=== PATIENT | female | born 1960 | race Caucasian/White ===

== ENCOUNTER 2022-09-25 09:25 | Outpatient (OUT) | payer BC, SELFPAY ==
[2022-09-25 09:41] LABS: Basophils Percent Auto 0.8 % (0.2-2.0); Eosinophils Absolute Auto 0.2 10^3/uL (0.0-0.7); Eosinophils Percent Auto 4.9 % (0.9-7.0); Hematocrit 41.4 % (36.0-48.0); Hemoglobin 13.5 g/dL (12.0-16.0); Immature Granulocytes Abs Auto 0.01 10^3/uL (0.00-0.03); Immature Granulocytes Pct Auto 0.2 % (0.0-0.5); Lymphocytes Absolute Auto 1.3 10^3/uL (1.2-3.8); Lymphocytes Percent Auto 26.5 % (20.5-60.0); Mean Corpuscular HGB Conc 32.6 g/dL (29.9-35.2); Mean Corpuscular Hemoglobin 29.9 pg (26.7-34.0); Mean Corpuscular Volume 91.8 fL (81.0-99.0); Mean Platelet Volume 9.3 fL (9.5-13.5); Monocytes Absolute Auto 0.5 10^3/uL (0.3-0.8); Monocytes Percent Auto 9.9 % (1.7-12.0); Neutrophils Absolute Auto 2.9 10^3/uL (1.4-6.5); Neutrophils Percent Auto 57.7 % (43.0-75.0); Platelet Count 350 10^3/uL (150-450); Red Blood Count 4.51 10^6/uL (4.20-5.40); Red Cell Distribution Width 12.3 % (11.0-15.0); White Blood Count 4.9 10^3/uL (4.0-11.0)
[2022-09-25 10:48] LABS: Estimated Average Glucose 105 mg/dL; Glycohemoglobin A1C 5.3 % (4.5-6.2)
[2022-09-25 11:07] LABS: Alanine Aminotransferase 31 U/L (14-59); Albumin Globulin Ratio 1.3; Albumin Level 4.2 g/dL (3.4-5.0); Alkaline Phosphatase 87 U/L (46-116); Anion Gap 14.5; Aspartate Amino Transferase 23 U/L (15-37); Bilirubin Total 0.4 mg/dL (0.2-1.0); Calcium 9.1 mg/dL (8.5-10.1); Carbon Dioxide 26.4 mmol/L (21.0-32.0); Chloride 106 mmol/L (98-107); Chol HDL Ratio 2.7; Cholesterol 205 mg/dL (<=200); Estimated GFR (African America >60 (>=60); Estimated GFR (Non-African Ame >60 (>=60); Free T3 2.45 pg/mL (2.18-3.98); Globulin 3.3 g/dL; Glucose 86 mg/dL (74-106); HDL Cholesterol 75 mg/dL (40-60); Potassium 3.9 mmol/L (3.5-5.1); Sodium 143 mmol/L (136-145); Thyroid Stimulating Hormone 1.069 uIU/mL (0.358-3.740); Total Protein 7.5 g/dL (6.4-8.2); Triglycerides 68 mg/dL (<=150); VLDL CHOLESTEROL 13.6 mg/dL
== END 2022-09-25 09:26 | disposition home or self-care (01) ==
LOC: LAB 10-19 14:54
PROVIDERS: PCP Family Medicine; Visit Provider Family Medicine
DX: Z00.00 Encounter for general adult medical examination without abnormal findings (principal); E03.9 Hypothyroidism, unspecified; R53.83 Other fatigue; D64.9 Anemia, unspecified; R73.09 Other abnormal glucose
CPT/HCPCS: 36415; 80053; 80061; 83036; 84436; 84443; 84481; 85025

== ENCOUNTER 2023-03-01 12:08 | Outpatient (OUT) | payer BC, SELFPAY ==
--- NOTE | 2023-03-01 12:15 | XR_ITS ---
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 TECHNIQUE: 2 views Findings/impression: Satisfactory alignment. Maintained vertebral body heights and disc spaces. Mild facet arthropathy of L4-S1. No acute fracture. Scattered calcified atherosclerotic disease of aorta. Electronically authenticated by: SALINA FAUSTIN Date: 03/01/2023 13:31
--- NOTE | 2023-03-01 12:27 | XR_ITS ---
The [address] [address] Patient Name: KAI ALEXANDER MRN: [id number] date: 1960 Sex: F Assigned Patient Location: [facility] Current Patient Location: [facility] Accession/Order Number: [id number] Exam Date: 03/01/2023 12:20 Report Date: 03/01/2023 14:09 At the request of: GORGE VANG Procedure: XR shoulder RT min 2V PROCEDURE: XR shoulder RT min 2V COMPARISON: None. HISTORY: Shoulder Impingement M75.40 FINDINGS: BONES:No acute fracture or dislocation. Mild acromioclavicular joint osteoarthropathy with 2 mm of subacromial spurring. The acromioclavicular joint is intact SOFT TISSUES:Negative. No visible soft tissue swelling. EFFUSION:None visible. OTHER: Negative. XR/XR shoulder RT min 2V IMPRESSION: Mild acromioclavicular joint osteoarthritis Electronically authenticated by: BRYAN ANTONIO Date: 03/01/2023 14:09
== END 2023-03-01 12:09 | disposition home or self-care (01) ==
LOC: RAD 12:10
PROVIDERS: PCP Family Medicine; Visit Provider Family Medicine
DX: M53.86 Other specified dorsopathies, lumbar region (principal); M75.40 Impingement syndrome of unspecified shoulder; M19.011 Primary osteoarthritis, right shoulder
CPT/HCPCS: 72100; 73030

== ENCOUNTER 2023-03-22 12:18 | Day surgery (SDC) | payer BC, SELFPAY ==
--- NOTE | 2023-03-22 | MR_ITS ---
The [address] [address] Patient Name: KAI ALEXANDER MRN: [id number] date: 1960 Sex: F Assigned Patient Location: MRI Current Patient Location: MRI Accession/Order Number: [id number] Exam Date: 03/22/2023 13:48 Report Date: 03/22/2023 22:27 At the request of: GORGE VANG Procedure: MR shoulder RT w con EXAM: MR shoulder RT w con HISTORY: Right shoulder pain after fall in December 2022 COMPARISON: Shoulder x-rays 03/01/2023 TECHNIQUE: Multiplanar, multi sequential MRI sequences were performed following the intra-articular injection of a saline-gadolinium solution. FINDINGS: This study is degraded as the axial projections do not extend past the inferior aspect of the acromioclavicular joint, the sagittal sequences do not extend medial aspect of the glenoid rim, and the coronal sequences windowing extends from just anterior to the subscapularis tendon to just posterior of the teres minor tendon. The arthrographic needle was placed into the middle glenohumeral ligament resulting in contrast imbibition. Additionally, the needle placement results in elevation of the subscapularis muscle from the anterior aspect of the glenoid approximately 43 mm medial (axial 12). Severe degenerative changes of the acromioclavicular joint consistent with capsular hypertrophy, osteophytes and irregularity of the distal clavicle and adjacent acromion articular surfaces and subchondral bone. This complex mildly touches the cephalad fibers of the supraspinatus myotendinous junction (sagittal 20 and coronal 9). Reactive fluid within the subacromial-subdeltoid bursal space. Thickening and edema of the coracoacromial ligament (sagittal 15). Thickening and interstitial edema of the coracohumeral ligament. No gross irregularity of the coracoclavicular images. Evaluation for glenohumeral joint effusion is nondiagnostic due to the arthrogram. No visualized fracture, dislocation or subluxation. The visualized subcutaneous soft tissues exhibit no gross edema, hematoma, mass or cyst. Thickening and interstitial edema of the posterior supraspinatus tendon with partial-thickness bursal sided fraying (sagittal 9). On the T1 fat-saturated sequences there is contrast imbibition into the articular sided fibers of the supraspinatus tendon that is not present on the fluid sensitive sequencing (sagittal 8, axial 6 and coronal 9-10). Mild thickening and edema of the infraspinatus tendon with no tear. The subscapularis and teres minor tendons exhibit no thickening, tear or edema. Evaluation of the muscles is limited secondary to technique. No gross visualized irregularity. No avulsion of the biceps tendon long head from the supraglenoid tubercle or bicipital groove. The biceps tendon long head exhibits no discrete thickening, tear or edema. No gross irregularity the biceps labral anchor. No gross visualized irregularity the glenoid labrum. No gross chondral or osteochondral irregularity of the humeral head or glenoid articular cartilage. MR/MR shoulder RT w con IMPRESSION: 1. Supraspinatus tendinopathy with partial-thickness bursal sided fraying and noncommunicative articular sided footprint tear. 2. Infraspinatus tendinopathy. Electronically authenticated by: BRYAN JOHNSON Date: 03/22/2023 22:27
--- NOTE | 2023-03-22 12:41 | FL_ITS ---
[address] [address] Patient Name: KAI ALEXANDER MRN: [id number] date: 1960 Sex: F Assigned Patient Location: MRI Current Patient Location: MRI Accession/Order Number: [id number] Exam Date: 03/22/2023 12:45 Report Date: 03/22/2023 13:59 At the request of: GORGE VANG Procedure: FL guided needle placement EXAMINATION: FL arthrogram shoulder, FL guided needle placement HISTORY: shoulder impingement COMPARISON: No relevant comparison available. TECHNIQUE: An arthrogram was performed under fluoroscopic guidance using non-ionic contrast material in the usual sterile manner after obtaining informed consent. Standard level fluoroscopic mode of operation utilized. FINDINGS: JOINT: Right shoulder NEEDLE: 25 gauge, 3.5 spinal needle. MEDICATION: 2 mL buffered 1% lidocaine for subcutaneous anesthesia. Approximately 8 mL injected into joint space consisting of a mixture of 5 mL Omnipaque-300, 5 mL 1% Xylocaine and 0.2 mL Dotarem. TECHNIQUE: Anterior approach under fluoroscopic guidance. CLINICAL: No change in pain following the injection. COMPLICATIONS: None. OTHER: Negative. FL/FL guided needle placement IMPRESSION: 1. Technically successful arthrogram without complication. 2. Please see separate MRI arthrogram report. Electronically authenticated by: SEJAL SMITH Date: 03/22/2023 13:59
--- NOTE | 2023-03-22 13:42 | FL_ITS ---
[address] [address] Patient Name: KAI ALEXANDER MRN: [id number] date: 1960 Sex: F Assigned Patient Location: MRI Current Patient Location: MRI Accession/Order Number: [id number] Exam Date: 03/22/2023 12:45 Report Date: 03/22/2023 13:59 At the request of: GORGE VANG Procedure: FL arthrogram shoulder EXAMINATION: FL arthrogram shoulder, FL guided needle placement HISTORY: shoulder impingement COMPARISON: No relevant comparison available. TECHNIQUE: An arthrogram was performed under fluoroscopic guidance using non-ionic contrast material in the usual sterile manner after obtaining informed consent. Standard level fluoroscopic mode of operation utilized. FINDINGS: JOINT: Right shoulder NEEDLE: 25 gauge, 3.5 spinal needle. MEDICATION: 2 mL buffered 1% lidocaine for subcutaneous anesthesia. Approximately 8 mL injected into joint space consisting of a mixture of 5 mL Omnipaque-300, 5 mL 1% Xylocaine and 0.2 mL Dotarem. TECHNIQUE: Anterior approach under fluoroscopic guidance. CLINICAL: No change in pain following the injection. COMPLICATIONS: None. OTHER: Negative. FL/FL arthrogram shoulder IMPRESSION: 1. Technically successful arthrogram without complication. 2. Please see separate MRI arthrogram report. Electronically authenticated by: SEJAL SMITH Date: 03/22/2023 13:59
--- NOTE | 2023-03-22 14:24 | SUR.PREOP ---
03/02/23 Instructed pt on procedure, date, time. Pt to hold ASA x 5 days prior to procedure.
== END 2023-03-22 13:45 | disposition home or self-care (01) ==
PROVIDERS: Radiology Diagnostic Radiology; PCP Family Medicine; Visit Provider Family Medicine
DX: M75.41 Impingement syndrome of right shoulder (principal)
CPT/HCPCS: 23350; 73222; 77002; A9575; Q9967

== ENCOUNTER 2023-10-15 11:40 | Outpatient (OUT) | payer BC, SELFPAY ==
--- OUTSIDE RECORDS SUMMARY | 2023-10-15 11:45 | XMS_ITS | CCD ---
Author Organization [facility] Care Team Providers Care General Machine Operator Name Role Phone CIERA ., DR PENNINGTON Admitting Unavailable HOY ., DR PENNINGTON Attending Unavailable HOY ., DR PENNINGTON Primary Care Unavailable HOY ., DR PENNINGTON Consulting Unavailable Sejal Cox Consulting Unavailable HOY ., DR PENNINGTON Admitting Unavailable HOY ., DR PENNINGTON Attending Unavailable HOY ., DR PENNINGTON Primary Care Unavailable MILESY ., DR PENNINGTON Consulting Unavailable Sejal Cox Consulting Unavailable DANNY MOSER Attending Unavailable Problems Problem Classification Problem Date Documented Da te Episodic/Chronic Abdominal hernia (4 sources) Unilateral inguinal hernia, without obstruction or gangrene, not specified as recurrent; Translations: [UNI ING RUTH NO OBST/GANG NOT RECUR] Onset: 06-11-2022 Episodic Residual codes; unclassified (4 sources) Other amnesia; Translations: [OTHER AMNESIA] Onset: 04-08-2022 Episodic Results Test Name Value Interpretation Reference Range Facil ity CREATININEon 06-11-2022 Creatinine [Mass/Vol] 0.74 mg/dL Normal 0.55-1.02 [facility] Comment on above: Performed By: #### C JE #### [facility] [address] [address] [address] Hellen Lsasiter EGFR-AF MICRONESIAN >60 Normal >=60 [facility] Comment on above: Performed By: #### C JE #### [facility] [address] [address] [address] Hellen Lassiter EGFR-NON AF MICRONESIAN >60 Normal >=60 [facility] Comment on above: Performed By: #### C JE #### [facility] [address] ABD/PELV W CONon 06-11-19 CT ABD/PELV W CON EXAMINATION: CT ABD/PELV W CON HISTORY: Inguinal hernia ; recent sharp planes and sensation in left lower quadrant COMPARISON: No relevant comparison available. TECHNIQUE: Axial, Coronal, and Sagittal images were obtained without and/or with IV contrast as indicated by examination type. Dose reduction techniques were achieved by using automated exposure control and/or adjustment of mA and/or kV according to patient size and/or use of iterative reconstruction technique. FINDINGS: LUNG BASES: No visible pulmonary or pleural disease. LIVER: No enlargement, atrophy, suspicious density, or significant focal lesion. BILIARY: No dilatation or calcification. PANCREAS: No lesion, fluid collection, or abnormal duct dilatation. SPLEEN: Small cyst versus hemangioma, likely incidental. ADRENALS: No mass or enlargement. KIDNEYS: No mass, obstruction, or calcification. BOWEL/MESENTERY: No visible mass, obstruction, or bowel wall thickening. Normal appendix. No significant diverticular disease. AORTA/VASCULAR: No aneurysm or dissection. RETROPERITONEUM: No mass or adenopathy. LYMPH NODES: No adenopathy. URINARY BLADDER: No visible focal wall thickening, lesion, or calculus. PELVIC ORGANS: No visible mass. Pelvic organs appropriate for patient age. ABDOMINAL WALL: No mass or hernia. BONES: No bony lesion or fracture. OTHER: Negative. IMPRESSION: 1. No left inguinal hernia. 2.No diverticular disease of the sigmoid colon. 3. No suspicious findings to account for patient's prior symptoms. Electronically authenticated by: SEJAL COX Date: 2022-06-11 15:14 Normal [facility] CREATININEon 04-08-2022 Creatinine [Mass/Vol] 0.82 mg/dL Normal 0.55-1.02 [facility] Comment on above: Performed By: #### C JE #### [facility] [address] [address] [address] Hellen Lassiter EGFR-AF MICRONESIAN >60 Normal >=60 [facility] Comment on above: Performed By: #### C JE #### [facility] [address] [address] [address] Hellen Lassiter EGFR-NON AF MICRONESIAN >60 Normal >=60 [facility] Comment on above: Performed By: #### C JE #### [facility] [id number] Hellen Lassiter Encounters Encounter Date Encounter Type Care Provider Facility Start: 03-29-2023 End: 03-29-2023 ambulatory DANNY MOSER Not Available Start: 06-11-2022 End: 06-12-[address] GORGE VANG . Facility: Start: 04-08-2022 End: 04-09-[address] GORGE VANG . Facility:[facility] Payers Date Payer Category Payer Unknown [id number] 2.16.84 [id number] 1960 Unknown [id number] [id number] [id number] 1960 Unknown [id number] 1958 Unknown [id number] 1958 Unknown [id number] Clinical Note 04-09-2022 Note Date & Type Note Facility 04-09-2022 Note EXAMINATION: MRI BRA IN WO W CON HISTORY: Amnesia ; progression of memory issues COMPARISON: No relevant comparison available. TECHNIQUE: A variety of imaging planes and parameters were utilized for visualization of suspected pathology. Images were performed without and with Dotarem contrast. FINDINGS: CEREBRUM: No edema, hemorrhage, mass, acute infarction, or inappropriate atrophy. CEREBELLUM: No edema, hemorrhage, mass, acute infarction, or inappropriate atrophy. BRAINSTEM: No edema, hemorrhage, mass, acute infarction, or inappropriate atrophy. CSF SPACES: Ventricles, cisterns, and sulci are appropriate for age. No hydrocephalus, subarachnoid hemorrhage, or mass. SKULL: No mass or other significant visible lesion. SINUSES: Limited views demonstrate no significant mucosal thickening or fluid. ORBITS: Limited views are unremarkable. OTHER: No abnormal meningeal or parenchymal enhancement. IMPRESSION: 1. Normal examination. Electronically authenticated by: SEJAL COX Date: 2022-04-09 08:20 [facility] Summary Purpose Family History No Family History Records FoundNo Family History Records Found Advance Directives No Advanced Directives Records FoundNo Advanced Directives Records Found Additional Source Comments INFORMATION SOURCE (unrecogn ized section and content) DATE CREATED AUTHOR 06/17/2022 [facility] DATE CREATED AUTHOR AUTHOR'S KENNY ATNILTON 03/31/2023 [facility] dical Specialists [facility] FOR RECORDS PERTAINING TO PATIENTS WHO ARE OR HAVE BEEN ENROLLED IN A CHEMICAL DEPENDENCY/SUBSTANCEABUSE PROGRAM, SOME INFORMATION MAY BE OMITTED. This clinical summary was aggregated from multiple sources. Caution should be exercised in using it in the provision of clinical care. This summary normalizes information from multiple sources, and as a consequence, information in this document may materially change the coding, format and clinical context of patient data. In addition, data may be omitted in some cases. CLINICAL DECISIONS SHOULD BE BASED ON THE PRIMARY CLINICAL RECORDS. [facility] [employer] provides no warranty or guarantee of the accuracy or completeness of information in this document.
[2023-10-15 12:13] LABS: Estimated Average Glucose 103 mg/dL; Glycohemoglobin A1C 5.2 % (4.5-6.2)
[2023-10-15 12:31] LABS: Basophils Percent Auto 0.9 % (0.2-2.0); Eosinophils Absolute Auto 0.2 10^3/uL (0.0-0.7); Eosinophils Percent Auto 3.3 % (0.9-7.0); Hematocrit 35.8 % (36.0-48.0); Hemoglobin 11.6 g/dL (12.0-16.0); Lymphocytes Absolute Auto 1.2 10^3/uL (1.2-3.8); Lymphocytes Percent Auto 26.1 % (20.5-60.0); Mean Corpuscular HGB Conc 32.4 g/dL (29.9-35.2); Mean Corpuscular Volume 92.5 fL (81.0-99.0); Mean Platelet Volume 10.3 fL (9.5-13.5); Monocytes Absolute Auto 0.4 10^3/uL (0.3-0.8); Monocytes Percent Auto 9.6 % (1.7-12.0); Neutrophils Absolute Auto 2.8 10^3/uL (1.4-6.5); Neutrophils Percent Auto 60.1 % (43.0-75.0); Platelet Count 329 10^3/uL (150-450); Red Blood Count 3.87 10^6/uL (4.20-5.40); Red Cell Distribution Width 11.9 % (11.0-15.0); White Blood Count 4.6 10^3/uL (4.0-11.0)
[2023-10-15 13:43] LABS: Alanine Aminotransferase 27 U/L (14-59); Albumin Globulin Ratio 1.4; Alkaline Phosphatase 68 U/L (46-116); Anion Gap 12.1; Aspartate Amino Transferase 17 U/L (15-37); BUN Creatinine Ratio 19.7; Bilirubin Total 0.6 mg/dL (0.2-1.0); Calcium 8.7 mg/dL (8.5-10.1); Carbon Dioxide 26.8 mmol/L (21.0-32.0); Chloride 106 mmol/L (98-107); Chol HDL Ratio 2.5; Cholesterol 170 mg/dL (<=200); Estimated GFR (African America >60 (>=60); Estimated GFR (Non-African Ame >60 (>=60); Free T3 1.56 pg/mL (2.18-3.98); Globulin 2.9 g/dL; Glucose 85 mg/dL (74-106); HDL Cholesterol 68 mg/dL (40-60); Potassium 3.9 mmol/L (3.5-5.1); Sodium 141 mmol/L (136-145); Total Protein 6.9 g/dL (6.4-8.2); Triglycerides 35 mg/dL (<=150)
[2023-10-17 15:36] LABS: Internal Control Within Normal Limits; Occult Blood Negative
== END 2023-10-15 11:41 | disposition home or self-care (01) ==
LOC: LAB 11:43
PROVIDERS: PCP Family Medicine; Visit Provider Family Medicine
DX: Z00.00 Encounter for general adult medical examination without abnormal findings (principal)
CPT/HCPCS: 36415; 80053; 80061; 83036; 83540; 84436; 84443; 84481; 85025; G0328

== ENCOUNTER 2023-12-02 09:23 | Outpatient (OUT) | payer BC, SELFPAY ==
--- OUTSIDE RECORDS SUMMARY | 2023-12-02 09:34 | XMS_ITS | CCD ---
Author Organization [facility] Care Team Providers Care Tire Fixer Name Role Phone CIERA ., DR PENNINGTON [...] Creatinine [Mass/Vol] 0.74 mg/dL Normal 0.55-1.02 [facility] Comment on above: Performed By: #### C JE #### [facility] [address] [address] [address] Hellen Lassiter EGFR-AF LITHUANIAN >60 Normal >=60 [facility] Comment on above: Performed By: #### C JE #### [facility] [address] [address] [address] Hellen Lassiter EGFR-NON AF LITHUANIAN >60 Normal >=60 [facility] Comment on above: Performed By: #### C JE #### [facility] [address] ABD/PELV W CONon [...] SEJAL COX Date: 2022-06-11 15:14 Normal [facility] CREATININEon 04-08-2022 Creatinine [Mass/Vol] 0.82 mg/dL Normal 0.55-1.02 [facility] Comment on above: Performed By: #### C JE #### [facility] [address] [address] [address] Hellen Lassiter EGFR-AF LITHUANIAN >60 Normal >=60 [facility] Comment on above: Performed By: #### C JE #### [facility] [address] [address] [address] Hellen Lassiter EGFR-NON AF LITHUANIAN >60 Normal >=60 [facility] Comment on above: Performed By: #### C JE #### [facility] [id number] Hellen Lassiter Encounters Encounter Date Encounter Type Care Provider Facility Start: 03-29-2023 End: 03-29-2023 ambulatory DANNY MOSER Not Available Start: 06-11-2022 End: 06-12-[address] GORGE VANG . Facility: Start: 04-08-2022 End: 04-09-[address] GORGE VANG . Facility:[facility] Payers Date Payer Category Payer Unknown [id number] 2.16.84 [id number] 1960 Unknown [id number] 2.16.84 [id number] 1960 Unknown [id number] 1958 Unknown [id number] 1958 Unknown [id number] Clinical Note 04-09-2022 Note Date & Type [...] by: SEJAL COX Date: 2022-04-09 08:20 [facility] Summary Purpose Family History No Family History Records FoundNo Family History Records Found Advance Directives No Advanced Directives Records FoundNo Advanced Directives Records Found Additional Source Comments INFORMATION SOURCE (unrecogn ized section and content) DATE CREATED AUTHOR 06/17/2022 [facility] DATE CREATED AUTHOR AUTHOR'S KENNY ATNILTON 03/31/[address] [facility] dical Specialists [facility] FOR RECORDS PERTAINING TO PATIENTS WHO ARE [...] BE BASED ON THE PRIMARY CLINICAL RECORDS. [facility] [employer] provides no warranty or guarantee of the accuracy or completeness of information in this document.
[2023-12-02 09:42] LABS: Basophils Absolute Auto 0.1 10^3/uL (0.0-0.1); Basophils Percent Auto 1.3 % (0.2-2.0); Eosinophils Absolute Auto 0.1 10^3/uL (0.0-0.7); Eosinophils Percent Auto 3.6 % (0.9-7.0); Hematocrit 39.5 % (36.0-48.0); Hemoglobin 12.6 g/dL (12.0-16.0); Immature Granulocytes Abs Auto 0.01 10^3/uL (0.00-0.03); Immature Granulocytes Pct Auto 0.3 % (0.0-0.5); Lymphocytes Absolute Auto 1.1 10^3/uL (1.2-3.8); Mean Corpuscular HGB Conc 31.9 g/dL (29.9-35.2); Mean Corpuscular Hemoglobin 30.5 pg (26.7-34.0); Mean Corpuscular Volume 95.6 fL (81.0-99.0); Mean Platelet Volume 10.3 fL (9.5-13.5); Monocytes Absolute Auto 0.4 10^3/uL (0.3-0.8); Monocytes Percent Auto 10.4 % (1.7-12.0); Neutrophils Absolute Auto 2.1 10^3/uL (1.4-6.5); Neutrophils Percent Auto 55.4 % (43.0-75.0); Platelet Count 326 10^3/uL (150-450); Red Blood Count 4.13 10^6/uL (4.20-5.40); Red Cell Distribution Width 12.4 % (11.0-15.0); White Blood Count 3.9 10^3/uL (4.0-11.0)
[2023-12-02 11:58] LABS: Thyroid Stimulating Hormone 0.636 uIU/mL (0.358-3.740)
[2023-12-02 13:05] LABS: Free T4 1.09 ng/dL (0.76-1.46)
== END 2023-12-02 09:24 | disposition home or self-care (01) ==
LOC: LAB 09:25
PROVIDERS: PCP Family Medicine; Visit Provider Family Medicine
DX: E03.9 Hypothyroidism, unspecified (principal); D64.9 Anemia, unspecified
CPT/HCPCS: 36415; 82728; 83540; 84439; 84443; 84481; 85025

== ENCOUNTER 2023-12-07 08:01 | Outpatient (OUT) | payer BC, SELFPAY ==
--- NOTE | 2023-12-07 08:08 | US_ITS ---
The [address] [address] Patient Name: KAI ALEXANDER MRN: [id number] date: 1960 Sex: F Assigned Patient Location: Current Patient Location: LAB Accession/Order Number: [id number] Exam Date: 12/07/2023 08:09 Report Date: 12/07/2023 20:48 At the request of: GORGE VANG Procedure: US abdomen complete EXAM: US abdomen complete, 12/07/2023. COMPARISON STUDY: CT of the abdomen and pelvis with contrast 06/11/2022. TECHNIQUE: Multiple sagittal and transverse images of the abdomen were obtained. Acr-scale, color and spectral wave Doppler analysis was utilized. HISTORY: Abnormal Laboratory Test R89.9. FINDINGS: The visualized portions of the pancreas appear unremarkable. Interrogated portions of the splenic vein distally and portal splenic confluence are patent with color Doppler. Proximal, mid and distal segments of the aorta measure 2.3, 2.0 x 1.6 cm anterior to posterior respectively without aneurysm. Visualized portions of the IVC and liver appear unremarkable. Incidental note of small focus of fatty infiltration near the fissure of the falciform ligament. Main portal vein is patent with flow in the correct direction. No significant biliary ductal dilatation. Common bile duct has a diameter 3 mm. There is a small polyp emanating off the anterior portion of the gallbladder wall within the midportion of the gallbladder lumen. This measures 7 x 4 x 5 mm. A calculus at the inferior pole of the right kidney may be present, 2 mm. Cortical thickness and parenchymal architecture of the kidneys are within normal limits. A subcapsular cyst at the upper pole of the spleen measures 1.4 x 1.3 x 1.3 cm. The spleen measures 7.7 x 3.1 x 8.4 cm. The right kidney measures 10.6 x 4.8 x 4.8 cm. The left kidney measures 9.2 x 6.2 x 5.5 cm. US/US abdomen complete IMPRESSION: 1. There is a subcentimeter gallbladder polyp as described. Negative for acute cholecystitis or biliary ductal dilatation. 2. Focal fatty infiltration of the liver near the fissure of the falciform ligament. 3. Subcentimeter nonobstructive calculus inferior pole right kidney. There is no hydronephrosis. 4. Subcapsular superior pole splenic cyst again identified unchanged. Electronically authenticated by: TREV MAGAÑA Date: 12/07/2023 20:48
--- OUTSIDE RECORDS SUMMARY | 2023-12-07 08:12 | XMS_ITS | CCD ---
Author Organization [facility] Care Team Providers Care Set Up Machinist Name Role Phone CIERA ., DR PENNINGTON [...] Creatinine [Mass/Vol] 0.74 mg/dL Normal 0.55-1.02 [facility] Comment on above: Performed By: #### C JE #### [facility] [address] [address] [address] Hellen Lassiter EGFR-AF INDONESIAN >60 Normal >=60 [facility] Comment on above: Performed By: #### C JE #### [facility] [address] [address] [address] Hellen Lassiter EGFR-NON AF INDONESIAN >60 Normal >=60 [facility] Comment on above: Performed By: #### C JE #### [facility] [address] [address] [address] ABD/PELV W CONon [...] SEJAL COX Date: 2022-06-11 15:14 Normal [facility] CREATININEon 04-08-2022 Creatinine [Mass/Vol] 0.82 mg/dL Normal 0.55-1.02 [facility] Comment on above: Performed By: #### C JE #### [facility] [address] [address] [address] Hellen Lassiter EGFR-AF INDONESIAN >60 Normal >=60 [facility] Comment on above: Performed By: #### C JE #### [facility] [address] [address] [address] Hellen Lassiter EGFR-NON AF INDONESIAN >60 Normal >=60 [facility] Comment on above: Performed By: #### C JE #### [facility] [id number] Hellen Lassiter Encounters Encounter Date Encounter Type Care Provider Facility Start: 03-29-2023 End: 03-29-2023 ambulatory DANNY MOSER Not Available Start: 06-11-2022 End: 06-12-[address] GORGE VANG . Facility: Start: 04-08-2022 End: 04-09-[address] GORGE VANG . Facility:[facility] Payers Date Payer Category Payer Unknown [id number] [id number] [id number] 1960 Unknown [id number] 2.16.84 [id number] 1960 Unknown [id number] 1958 Unknown [id number] 1958 Unknown [id number] Clinical Note 04-09-2022 Note Date & Type [...] by: SEJAL COX Date: 2022-04-09 08:20 [facility] Summary Purpose Family History No Family History Records FoundNo Family History Records Found Advance Directives No Advanced Directives Records FoundNo Advanced Directives Records Found Additional Source Comments INFORMATION SOURCE (unrecogn ized section and content) DATE CREATED AUTHOR 06/17/2022 [facility] DATE CREATED AUTHOR AUTHOR'S KENNY ATNILTON 03/31/2023 [facility] dical Specialists [facility] FOR RECORDS PERTAINING TO PATIENTS WHO ARE [...] BE BASED ON THE PRIMARY CLINICAL RECORDS. [facility] [employer] provides no warranty or guarantee of the accuracy or completeness of information in this document.
== END 2023-12-07 08:02 | disposition home or self-care (01) ==
LOC: US 08:01
PROVIDERS: PCP Family Medicine; Visit Provider Family Medicine
DX: R89.9 Unspecified abnormal finding in specimens from other organs, systems and tissues (principal); N20.0 Calculus of kidney
CPT/HCPCS: 76700

== ENCOUNTER 2024-03-02 08:19 | Outpatient (OUT) | payer BC, SELFPAY ==
--- OUTSIDE RECORDS SUMMARY | 2024-03-02 08:30 | XMS_ITS | CCD ---
Author Organization [facility] Care Team Providers Care Mercantile Reporter Name Role Phone CIERA ., DR PENNINGTON [...] Creatinine [Mass/Vol] 0.74 mg/dL Normal 0.55-1.02 [facility] Comment on above: Performed By: #### C JE #### [facility] Laboratory [address] [address] [address] Hellen Lassiter EGFR-AF CAMEROONIAN >60 Normal >=60 [facility] Comment on above: Performed By: #### C JE #### [facility] [address] [address] [address] Hellen Lassiter EGFR-NON AF CAMEROONIAN >60 Normal >=60 [facility] Comment on above: Performed By: #### C JE #### [facility] [address] ABD/PELV W CONon [...] SEJAL COX Date: 2022-06-11 15:14 Normal [facility] CREATININEon 04-08-2022 Creatinine [Mass/Vol] 0.82 mg/dL Normal 0.55-1.02 [facility] Comment on above: Performed By: #### C EJ #### [facility] [address] [address] [address] Hellen Lassiter EGFR-AF CAMEROONIAN >60 Normal >=60 [facility] Comment on above: Performed By: #### C JE #### [facility] [address] [address] [address] Hellen Lassiter EGFR-NON AF CAMEROONIAN >60 Normal >=60 [facility] Comment on above: Performed By: #### C JE #### [facility] [id number] Hellen Lassiter Encounters Encounter Date Encounter Type Care Provider Facility Start: 03-29-2023 End: 03-29-2023 ambulatory DANNY MOSER Not Available Start: 06-11-2022 End: 06-12-[address] GORGE VANG . Facility: Start: 04-08-2022 End: 04-09-[address] GORGE VANG . Facility:[facility] Payers Date Payer Category Payer Unknown [id number] [id number] [id number] 1961 Unknown [id number] [id number] [id number] 1961 Unknown [id number] 1959 Unknown [id number] 1959 Unknown [id number] Clinical Note 04-09-2022 Note Date & Type [...] by: SEJAL COX Date: 2022-04-09 08:20 [facility] Summary Purpose Family History No Family History Records FoundNo Family History Records Found Advance Directives No Advanced Directives Records FoundNo Advanced Directives Records Found Additional Source Comments INFORMATION SOURCE (unrecogn ized section and content) DATE CREATED AUTHOR 06/17/2022 [facility] DATE CREATED AUTHOR AUTHOR'S KENNY ATNILTON 03/31/2023 [facility] dical Specialists [facility] FOR RECORDS PERTAINING TO PATIENTS WHO [...] BE BASED ON THE PRIMARY CLINICAL RECORDS. [facility] [employer] provides no warranty or guarantee of the accuracy or completeness of information in this document.
[2024-03-02 09:58] LABS: Free T4 0.86 ng/dL (0.76-1.46)
[2024-03-02 10:04] LABS: Free T3 1.76 pg/mL (2.18-3.98); Thyroid Stimulating Hormone 0.195 uIU/mL (0.358-3.740)
== END 2024-03-02 08:20 | disposition home or self-care (01) ==
LOC: LAB 08:20
PROVIDERS: PCP Family Medicine; Visit Provider Family Medicine
DX: E03.9 Hypothyroidism, unspecified (principal)
CPT/HCPCS: 36415; 84439; 84443; 84481

== ENCOUNTER 2025-03-19 10:15 | Outpatient (OUT) | payer BC, SELFPAY ==
--- OUTSIDE RECORDS SUMMARY | 2025-03-19 10:21 | XMS_ITS | CCD ---
Author Organization [facility] Care Team Providers Care Boat Builder Name Role Phone CIERA ., DR PENNINGTON Admitting Unavailable CIERA ., DR PENNINGTON Attending Unavailable CIERA ., DR PENNINGTON Primary Care Unavailable CIERA ., DR PENNINGTON Consulting Unavailable Wilmar Cox Consulting Unavailable CIERA ., DR PENNINGTON Admitting Unavailable MILESY ., DR PENNINGTON Attending Unavailable HOY ., DR PENNINGTON Primary Care Unavailable MILESY ., DR PENNINGTON Consulting Unavailable Wilmar Cox Consulting Unavailable Unavailable Primary Care Provider UnavailCHEPE Banuelos Attending Unavailable CODIE MOSER Attending Unavailable Medications Current Medications MedicationDrug Class(es)DatesSig (Normalized)Sig (Original)ascorbic acid 1000 mg oral tablet (2 sources)Vitamin Ctake 1 tablet by mouth once dailyAscorbic Acid (vitamin C) 1000 MG tablet Take 1,000 mg by mouth Daily Activeaspirin 81 mg delayed release oral tablet (5 sources)Platelet Aggregation Inhibitor, Nonsteroidal Anti-inflammatory Drug take 1 tablet by mouth in the morningaspirin 81 MG EC tablet Take 81 mg by mouth in the morning. Activecephalexin 500 mg oral capsule (2 sources)Cephalosporin AntibacterialStart: 49-64-9380weze 1 capsule by mouth twice dailycephalexin (Keflex) 500 MG capsule Indications: Cellulitis of great toe of left foot 1 po bid untilall taken. 14 capsule 10/20/2024 Active chondroitin sulfates 400 mg / glucosamine sulfate 500 mg oral tablet (5 sources)take 1 tablet by mouth in the morning, then take 1 tablet by mouth in the evening, then take 1 tablet by mouth at bedtimeglucosamine-chondroitin 500- 400 MG tablet Take 1 tablet by mouth in the morning and 1 tablet in theevening and 1 tablet before bedtime. Activelevothyroxine sodium 0.025 mg oral tablet (5 sources)l-Thyroxinelevothyroxine (Synthroid, Levoxyl) 25 MCG tablet Take by mouth Daily before meals Activeliothyronine sodium 0.005 mg oral tablet (5 sources)l-Triiodothyroninetake 1 tablet by mouth once dailyliothyronine (Cytomel) 5 MCG tablet Take by mouth Daily ActiveMULTIPLE VITAMIN PO (5 sources)MULTIPLE VITAMIN PO Take by mouth Activenaproxen 250 mg oral tablet (2 sources)Nonsteroidal Anti-inflammatory Drugnaproxen (Naprosyn) 250 MG tablet Take by mouth Activeoxaprozin 600 mg oral tablet (5 sources)Nonsteroidal Anti-inflammatory Drugtake 2 tablets by mouth in the morningoxaprozin (Daypro) 600 MG tablet Take 1,200 mg by mouth in the morning. Zyusbd52 hr oxybutynin chloride 10 mg extended release oral tablet (5 sources)Cholinergic Muscarinic Antagonisttake 1 tablet by mouth every twenty- four hours in the morningoxybutynin XL (Ditropan-XL) 10 MG 24 hr tablet Take 10 mg by mouth in the morning. Do not crush, chew, or split. . Active Problems Problem ClassificationProblemDateDocumented DateEpisodic/ChronicAbdominal hernia (4 sources)Unilateral inguinal hernia, without obstruction or gangrene, not specified as recurrent; Translations: [UNI ING RUTH NO OBST/GANG NOT RECUR] Onset: 49-56-1236PmneycgpJpqyx skin disorders (2 sources)Seborrheic keratosis; Translations: [Other seborrheic keratosis] 28-11-9650JkusliwbSdaap skin disorders (2 sources)Inflamed seborrheic keratosis; Translations: [Inflamed seborrheic keratosis]42-61-8214QswolfcsUhtmc skin disorders (2 sources)Actinic keratosis; Translations: [Actinic keratosis]03-27-2024 EpisodicOther skin disorders (2 sources)Lentiginosis; Translations: [Other melanin hyperpigmentation] 85-17-5117MmdgcgvcVtxotrzu codes; unclassified (4 sources)Other amnesia; Translations: [OTHER AMNESIA]Onset: 67-78-0086[place] Skin and subcutaneous tissue infections (2 sources)Cellulitis of left toe; Translations: [Cellulitis and abscess of toe, unspecified]58-55-2810Biwbpghb Results Test NameValueInterpretationReference RangeFacilityNo Panel Informationon 92-96-4107EEOT HealthcareNOMO HealthcareCREATININEon 00-48-9475Aidmdkdxma [Mass/Vol]0.74 mg/dLNormal0.55-1.02[facility] HospitalComment on above: Performed By: #### CREA #### [facility] [address] [place] [address] Dr. Hellen SchaferGFR-AF IVORIAN>60Normal>=60[facility] HospitalComment on above:Performed By: #### CREA #### [facility] [address] [place] [address] Dr. Hellen SchaferGFR-NON AF IVORIAN>60Normal>=60[facility] HospitalComment on above:Performed By: #### CREA #### [facility] [address] [place] [address] Dr. Macedo ChangCT ABD/PELV W CONon 37-62-6486OK ABD/PELV W CONEXAMINATION: CT ABD/PELV W CON HISTORY: Inguinal hernia [...] for patient's prior symptoms. Electronically authenticated by: WILMAR COX Date: 2022-06-11 15:14[facility] 33-47-6506Mhfxjixhdc [Mass/Vol]0.82 mg/dLNormal 0.55-1.02[facility] HospitalComment on above:Performed By: #### CREA #### [facility] [address] [place] [address] Dr. Hellen SchaferGFR-AF IVORIAN>60Normal>=60[facility] HospitalComment on above:Performed By: #### CREA #### [facility] [address] [place] [address] Dr. Hellen SchaferGFR-NON AF IVORIAN>60Normal>=60[facility] Hospitalment on above:Performed By: #### CREA #### [facility] [address] [place] [address] Dr. Hellen Lassiter Vital Signs Date TimeVital SignValuePerforming FwimbmnfmPtueulhb09-23-2477 12:13-0400Body uednuyfmvtk25.59 [degF]Chepe Duarte DO Work Phone: noms Pxwprmshlb87-19-5552 12:130400Diastolic blood pnxnvjas74 mm[Hg]Chepe Duarte DO Work Phone: NOAddSearch Rcovutjnqf79-72-2430 12:13-0400Heart rate80 /min Chepe Duarte DO Work Phone: noAddSearch Ftgifllozt31-57-0824 12:13-1672EnV2% (BldA) [Mass fraction]97 %Chepe Duarte DO Work Phone: noms Cbweyppcjl51-21-2219 12:13-0400Systolic blood ysojcuma359 mm[Hg]Chepe Duarte DO Work Phone: [facility] Encounters Encounter DateEncounter TypeCare ProviderFacilityStart: 10-20-2024 End: 26-35-5466Bdhobd outpatient new 30 minutesTrentul Jaime Duarte Work Phone: noms SWS UCComment on above:Cellulitis of great toe of left foot (Primary Dx)Start: 10-20-2024 End: 44-78-9128smjfnsrnnhDKOR Jaime DUARTENora AvailableStart: 03-27-2024 End: 60-09-8033Syhfub Jane Moser MD Work Phone: noms SWS DERMStart: 03-27-2024 End: 08-20-5220Fiaufy Jane Moser MD Work Phone: noms SWS DERMStart: 03-27-2024 End: 61-46-7966Bqmidh outpatient visit 15 minutesEmjam Moser MD Work Phone: noms SWS DERMComment on above:Seborrheic keratosis (Primary Dx); Seborrheic keratosis, inflamed; Actinic keratosis; LentiginesStart: 03-27-2024 End: 78-82-3844ynruwawfqvGSUJQ A PETITTINoalfred AvailableStart: 06-11-2022 End: 52-28-4708zcxiwioblnVF GORGE VANG .Facility:W5Tjfuf: 04-08-2022 End: 16-88-1640zyvkiqwdhbUM GORGE VANG .Facility: Procedures DateProcedureProcedure DetailPerforming ClinicianStart: 03-27-2024 End: 03-83-8375NVZUODPBKOF SKIN LESIONEmjam Moser MD Work Phone: Plan of Treatment DateCare ActivityDetailAuthorStart: 03-27-2025 End: 97-63-5246Vdsptzq encounter ikyhvpwjk93/03/2025 1:15 PM EST Office Visit [facility] [address] [place] [address] Codie Moser MD [address] [place] [address] [facility] DERMStart: 95-42-9154Emlyztbhq vaccination Influenza Vaccine (#1)[facility] HealthcareStart: 03-27-2024 End: 18-37-7049Pkhbppt encounter dblolbkkk90/03/2024 1:45 PM EST [facility] [address] [place] [id number] Codie Moser MD [address] [place] [address] ArrivedNOEMANATE [facility]ALTH/[facility] DERMComment on above:ArrivedStart: 63-65-3445Ebpvxwyaq vaccinationInfluenza Vaccine (#1)[facility] HealthcareStart: 49-78-3274Pmeokprsi for malignant neoplasm of breastMammogramNOMS Healthcare Start: 87-38-2696Kvqgryzbf for malignant neoplasm of cervixNOMS HealthcareStart: 99-08-8182Iwoitegyd for malignant neoplasm of cervixPap SmearNOMS Healthcare Start: 26-51-1301Bohrztopx for malignant neoplasm of colonNOMS Healthcare Immunizations Immunization DateImmunizationNotesCare XjgfjagkXqskbqhl95-25-5982nbsohfjqx virus vaccine, unspecified formulationEmjam Moser MD Work Phone: [facility] Healthcare Payers DatePayer CategoryPayerPolicy [id number] [id number] [id number] Social History DateTypeDetailFacilityStart: 05-57-4602Ykqteoo smoking status NHISTobacco smoking consumption unknownNOMS HealthcareStart: 85-79-0288Regvxtd of Social functionNOMS HealthcareStart: 22-43-6993Gnzlvzy use panelNOMO HealthcareStart: 46-52-7107Tdu assigned at birthNot on [facility] History of Present illness Narrative 10-20-2024 Note Date & UzikVnqyWwaontwr62-18-7172 History of Present illness Narrative* Chepe Duarte, DO - 10/20/2024 11:45 AM EDT Images from the original note were not included. [address] , [address] [facility], [address] P: [phone] F: [phone] HPI Historian of HPI: patient Rebecca Morales is a 63 y.o. female who presents today to the Urgent Care with the following complaints and denials which have been present for 2 day(s) C/O Denies Symptom Comments [] [x] Lesion [] [x] Rash [] [x] Lump [] [x] Bump [] [x] Depression [] [x] abscess [] [x] cellulitis [x] [] itching [] [x] pain [] [x] burning [] [x] Sensation of insects crawling Additional Comments: Pt has a blister of L great toe. It is draining clear fluid. ROS A complete system ROS was performed and negative aside from the pertinent positives noted in the HPI and PE. PHYSICAL EXAM Physical Exam Constitutional: Appearance: Normal appearance. HENT: Head: Normocephalic. Cardiovascular: Rate and Rhythm: Normal rate. Pulmonary: Effort: Pulmonary effort is normal. Musculoskeletal: General: Swelling and tenderness present. Comments: Blister of left great toe with associated proximal cellulitis Neurological: Mental Status: She is alert. Psychiatric: Mood and Affect: Mood normal. TREATMENT PLAN Diagnoses and all orders for this visit: Cellulitis of great toe of left foot (Primary) - cephalexin (Keflex) 500 MG capsule; 1 po bid until all taken. Warm soaks of the toe with topical ointment of choice. Keflex to cover staph/strept. [facility] of Present illness Narrative 03-27-2024 Note Date & WwzaZweeUcziejkx43-11-4701 History of Present illness Narrative* Codie Moser MD - 03/27/2024 1:45 PM EST Skin Check Location: Patient requests a skin examination of face and chest only. Dermatologic history: history of Actinic Keratosis Last visit: 03/29/2023 Lesion #1: Location: right upper leg Duration: 1 year Quality: denies pain, denies itch, denies bleeding Associated symptoms: non-healing Treatments: none Lesion # 2: Location: right taoism Duration: 6 months Quality: denies pain, denies itch, denies bleeding Modifying factors: rubs on clothing, aggravated by picking Associated symptoms: non-healing Treatments: none Established patient All pertinent medical history, medications, and allergies were reviewed. General Exam: alert, oriented to person, place, and time, normal affect, well appearing Unaccompanied A complete skin exam was offered, patient declined. Scalp, Not examined Head, Face Examined Neck Not examined Chest Examined Back Not examined Abdomen Not examined Right arm Not examined Left arm Not examined Hands Not examined Digits,nails: Not examined Lymphatics: Not examined 1. Seborrheic keratosis Trunk Stuck on verrucous, thompson-brown papules and plaques. Patient was counseled regarding these benign growths. Removal is normally not necessary, but they may be removed if they are symptomatic or for cosmetic reasons. 2. Seborrheic keratosis, inflamed (3) Left Mormon, Right Mormon, Right Thigh - Anterior [place] and brown stuck on verrucous scaly papule with surrounding erythema The patient was informed that symptomatic seborrheic keratoses are benign growths that become inflamed, itchy, tender, traumatized, caught on clothing, or bleed. Symptomatic lesions can be treated with cryotherapy or curretage. Thicker lesions treated with cryotherapy may require more than one treatment. The patient was instructed to notify the office if abnormal redness or tenderness develops atthe treatment site. Cryotherapy today, see procedure note. Diagnosis: Inflamed seborrheic keratosis Indication: Inflamed Consent: Verbal consent was obtained and risks were discussed, including, but not limited to risks of scarring, darker or conflict resolution professional pigmentary changes, recurrence, incomplete removal and infection. Method: Liquid nitrogen was used to treat the lesion(s) with two 5-10 second freeze-thaw cycles Number of lesions treated: 3 Post-procedure instructions: Instructions were given orally and in writing. The office will be contacted if the lesion fails to resolve despite treatment, or if a side effect develops such as abnormal crusting, scabbing, redness or tenderness Cryotherapy, skin lesion - Left Mormon, Right Mormon, Right Thigh - Anterior 3. Actinic keratosis (3) Left Buccal Cheek (2), Right Malar Cheek Erythematous scaly papules Patient was counseled regarding these sun-induced growths that can develop into squamous cell carcinoma if left untreated. Discussed treatment with cryotherapy. It was emphasized that any treated lesions that fail to resolve should be re- evaluated. Cryotherapy performed today; see procedure note Diagnosis: Actinic keratosis Indication: Precancerous Location: see skin exam Consent: Verbal consent was obtained and risks were discussed, including, but not limited to risks of scarring, darker or conflict resolution professional pigmentary changes, recurrence, incomplete removal and infection. Method: Liquid nitrogen was used to treat the lesion(s) with two 5-10 second freeze-thaw cycles. Eyes were shielded using cotton pad during procedure Number of lesions treated: 3 Post-procedure instructions: Instructions were given orally and in writing. The office will be contacted if the lesion fails to resolve despite treatment, or if a side effect develops such as abnormal crusting, scabbing, redness or tenderness Cryotherapy, skin lesion - Left Buccal Cheek (2), Right Malar Cheek 4. Lentigines (2) Head - Anterior (Face), Trunk Scattered thompson macules in sun-exposed areas. The patient was informed that lentigines are benign pigmented lesions that occur on sun-exposed andsun-damaged skin. No treatment is necessary. Recommended regular use of broad spectrum sunscreen SPF 30 or higher Next Visit: 1 year, [facility]-09-2022 Note Date & BoaoSrjcDvyyxbyi13-67-5313 NoteEXAMINATION: MRI BRAIN WO W CON HISTORY: Amnesia ; progression [...] IMPRESSION: 1. Normal examination. Electronically authenticated by: WILMAR COX Date: 2022-04-09 08:20[facility] Evaluation note Note Date & TypeNoteFacilityEvaluation note* Diagnosis Seborrheic keratosis- Primary Seborrheic keratosis, inflamed Actinic keratosis Lentigines documented in this encounter [facility] Healthcare Evaluation note Note Date & TypeNoteFacilityEvaluation note* Diagnosis Cellulitis of great toe of left foot- Primary documented in this encounter [facility] Healthcare Summary Purpose Family History No Family History Records FoundNo Family History Records Found Advance Directives No Advanced Directives Records FoundNo Advanced Directives Records Found Additional Source Comments INFORMATION SOURCE (unrecogn ized section and content) DATE CREATED AUTHOR 06/17/2022 [facility] DATE CREATED AUTHOR AUTHOR'S ORGANIZ ATION 10/21/2024 [facility] EPIC Reason for Visit (unrecogniz ed section and content) ReasonCommentsSkin CheckSuspicious Skin Lesion FOR RECORDS PERTAINING TO PATIENTS WHO ARE [...] BE BASED ON THE PRIMARY CLINICAL RECORDS. [facility] [employer] [facility]. provides no warranty or guarantee of the accuracy or completeness of information in this document.
--- OUTSIDE RECORDS SUMMARY | 2025-03-19 10:21 | XMS_ITS | Clinical Summary ---
Author Organization [facility] Healthcare Address [address] [place] [address] Care Team Providers Care Crozer Name Role Phone Unavailable Primary Care Provider Unavailabl e Allergies No known active allergies Medications MedicationSigDispense QuantityRefillsLast FilledStart DateEnd DateStatus levothyroxine (Synthroid, Levoxyl) 25 MCG tablet Take by mouth Daily before mealsActive liothyronine (Cytomel) 5 MCG tablet Take by mouth DailyActive oxaprozin (Daypro) 600 MG tablet Take 1,200 mg by mouth in the morning.Active oxybutynin XL (Ditropan-XL) 10 MG 24 hr tablet Take 10 mg by mouth in the morning. Do not crush, chew, or split. .Active MULTIPLE VITAMIN PO Take by mouthActive aspirin 81 MG EC tablet Take 81 mg by mouth in the morning.Active glucosamine-chondroitin 500-400 MG tablet Take 1 tablet by mouth in the morning and 1 tablet in the evening and 1 tablet before bedtime.Active naproxen (Naprosyn) 250 MG tablet Take by mouthActive Ascorbic Acid (vitamin C) 1000 MG tablet Take 1,000 mg by mouth DailyActive cephalexin (Keflex) 500 MG capsule Indications:Cellulitis of great toe of left foot1 po bid until all taken. 14 capsule 5Active Active Problems No known active problems Social History Tobacco UseTypesPacks/DayYears UsedDateSmoking Tobacco: Unknown Tobacco Cessation:Counseling Given: Not Answered CommentsUnknownSex and Gender InformationValueDate RecordedSex Assigned at BirthNot on fileLegal EycVnqiif84/15/2023 6:56 PM EDTGender IdentityNot on fileSexual OrientationNot on file Last Filed Vital Signs Vital SignReadingTime TakenCommentsBlood Uqbvkxvo493/80010/20/2024 12:13 PM EDT Mchbw7333/28/2025 12:13 PM HCOGrlgftdtsoe14.4 ??C (97.6 ??F)10/20/2024 12:13 PM EDTRespiratory Rate--Oxygen Zvwawahveb61%10/20/2024 12:13 PM EDTInhaled Oxygen Concentration--Weight--Height--Body Mass Index-- Plan of Treatment DateTypeDepartmentCare Team (Latest Contact Info)Nzkpuhgeibb29/03/2025 1:20 PM ESTOffice Visit [facility] [address] [place] [address] Codie Beasley MD [address] [place] [address] Health MaintenanceDue DateLast DoneCommentsCT Cixmozuvigcc19/14/1962Colonoscopy 2Colorectal Cancer Fludclkxb07/14/1962FIT-DNA1961FIT1961 FOBT2313Szrcwpvzrsqyc35/14/1962Pap Smear1982Cervical Cancer Uxmcxuczp25/14/1992HPV/Momtqd6811/06/19916234Izbpthdbi65/14/2002COVID-19 Vaccine ( season)/08/2021, 03/14/2021, 08/15/2020, Additional history existsInfluenza Vaccine (#1)/12/2023, 03/11/2023, 03/14/2022, Additional history existsPneumococcal Vaccine: Pediatrics (0 to 5 Years) and At- Risk Patients (6 to 64 Years)Aged OutNo longer eligible based on patient's age to complete this topic Insurance
[2025-03-19 10:47] LABS: Hematocrit 38.5 % (36.0-48.0); Hemoglobin 12.7 g/dL (12.0-16.0); Immature Granulocytes Abs Auto 0.01 10^3/uL (0.00-0.03); Immature Granulocytes Pct Auto 0.2 % (0.0-0.5); Lymphocytes Absolute Auto 1.2 10^3/uL (1.2-3.8); Mean Corpuscular HGB Conc 33.0 g/dL (29.9-35.2); Mean Corpuscular Hemoglobin 30.8 pg (26.7-34.0); Mean Corpuscular Volume 93.2 fL (81.0-99.0); Platelet Count 349 10^3/uL (150-450); Red Blood Count 4.13 10^6/uL (4.20-5.40); White Blood Count 4.5 10^3/uL (4.0-11.0)
[2025-03-19 11:22] LABS: Alanine Aminotransferase 24 U/L (14-59); Albumin Globulin Ratio 1.2; Albumin Level 3.7 g/dL (3.4-5.0); Alkaline Phosphatase 75 U/L (46-116); Anion Gap 12.4; Aspartate Amino Transferase 16 U/L (15-37); Blood Urea Nitrogen 19.0 mg/dL (7.0-18.0); Calcium 8.9 mg/dL (8.5-10.1); Carbon Dioxide 28.7 mmol/L (21.0-32.0); Chloride 103 mmol/L (98-107); Cholesterol 234 mg/dL (<=200); Estimated GFR (African America >60 (>=60 mL/min/1.73m^2); Estimated GFR (Non-African Ame >60 (>=60 mL/min/1.73m^2); Free T3 1.89 pg/mL (2.18-3.98); Globulin 3.1 g/dL; Glucose 93 mg/dL (74-106); HDL Cholesterol 102 mg/dL (40-60); Potassium 4.1 mmol/L (3.5-5.1); Sodium 140 mmol/L (136-145); Thyroid Stimulating Hormone 1.411 uIU/mL (0.358-3.740); Total Protein 6.8 g/dL (6.4-8.2); Triglycerides 48 mg/dL (<=150); VLDL CHOLESTEROL 9.6 mg/dL
== END 2025-03-19 10:16 | disposition home or self-care (01) ==
LOC: LAB 10:18
PROVIDERS: PCP Family Medicine; Visit Provider Family Medicine
DX: Z00.00 Encounter for general adult medical examination without abnormal findings (principal); R53.83 Other fatigue; D64.9 Anemia, unspecified; Z12.11 Encounter for screening for malignant neoplasm of colon; E03.9 Hypothyroidism, unspecified
CPT/HCPCS: 36415; 80053; 80061; 83036; 84436; 84443; 84481; 85025

== ENCOUNTER 2025-04-16 15:39 | Outpatient (OUT) | payer BC, SELFPAY ==
--- OUTSIDE RECORDS SUMMARY | 2025-04-16 15:44 | XMS_ITS | Patient Health Record ---
Author Organization [facility] Address [address] [place] [address] Care Team Providers Care Cornice Maker Name Role Phone Wilmar Coleman Unavailable [phone] Reason For Referral No Information Social History Tobacco Use: Social History Observation Description Date Details (start date - stop date) Never Smoker NA - NA Smoking History Question Answer Notes Smoking Status NonSmoker Problems Problem Type SNOMED Code ICD Code Onset Dates Problem Status W/U Status Risk Notes Problem Nontraumatic rotator cuff tear (disorder) (800986881) Incomplete rotator cuff tear or rupture of right shoulder, not specified as traumatic (M75.111) Activeconfirmed Plan Of Treatment No Information Insurance Providers Payer Name Payer Address Payer Phone Subscriber Number Group Number Insured Name Patient Relationship to Insured Coverage Start Date Coverage End Date Iris [address] [place] [address] [id number] KAI ALEXANDER Self - patient is the insured
--- OUTSIDE RECORDS SUMMARY | 2025-04-16 15:44 | XMS_ITS | Patient Health Record ---
Author Organization 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 , White Blood Count 4.5 4.0-11.0 10 3/uL Red Blood Count4.134.20-5.40 10 6/hNRsecknoniq96.712.0-16.0 g/kTTvbskbcmcw74.5 36.0-48.0 %Mean Corpuscular Fveojh79.281.0-99.0 fLMean Corpuscular Hemoglobin 30.826.7-34.0 pgMean Corpuscular HGB Conc33.029.9-35.2 g/dLRed Cell Distribution Width11.911.0-15.0 %Platelet Skrsl182551-872 10 3/uLMean Platelet Volume9.39.5- 13.5 fLNeutrophils Percent Auto58.643.0-75.0 %Lymphocytes Percent Auto27.920.5- 60.0 %Monocytes Percent Auto8.81.7-12.0 %Eosinophils Percent Auto3.80.9-7.0 % Basophils Percent Auto0.70.2-2.0 %Immature Granulocytes Pct Auto0.20.0-0.5 % Neutrophils Absolute Auto2.61.4-6.5 10 3/uLLymphocytes Absolute Auto1.21.2-3.8 10 3/uLMonocytes Absolute Auto0.40.3-0.8 10 3/uLEosinophils Absolute Auto0.20.0- 0.7 10 3/uLBasophils Absolute Auto0.00.0-0.1 10 3/uLImmature Granulocytes Abs Auto0.010.00-0.03 10 3/uLPerforming Lab:see noteML - [facility] LB GLYCOHEMOGLOBIN A1C Reviewed date:03/19/2025 04:22:42 PM Interpretation: Performing Lab: Notes/Report: [facility] ,Glycohemoglobin A1C5.04.5-6.2 % ACTION SUGGESTED > 7.0 ADA RECOMMENDED LIMIT 4.0 - 6.0 ADA THERAPEUTIC TARGET < 7.0 Estimated Average Kfkgwlm71Kglwhgkkor Lab:see noteML - [facility] LB LIPID PROFILE Reviewed date:03/19/2025 04:22:42 PM Interpretation: Performing Lab: Notes/Report: [facility] ,Xcbaymhurevlp27<=150 mg/aWFcclitktyqp635<=200 mg/dLHDL Udjbctzfxgr21672-98 mg/dL <40 mg/dl - HIGH CARDIOVASCULAR RISK > or =60 mg/dl - LOW CARDIOVASCULAR RISK LDL Cholesterol Ktbmlxchrb931.0 <100 mg/dl OPTIMAL 130-159 mg/dl BORDERLINE HIGH 100-129 mg/dl NEAR OR ABOVE OPTIMAL 160-189 mg/dl HIGH >190 mg/dl VERY HIGH VLDL CHOLESTEROL9.6Chol HDL Ratio2.3 7.1 - 11.0 MODERATE RISK 4.4 - 7.1 AVERAGE RISK >11.0 HIGH RISK 3.3 - 4.4 LOW RISK Performing Lab:see noteML - [facility] LBPROF 14(COMP METB) Reviewed date:03/19/2025 04:22:42 PM Interpretation: Performing Lab: Notes/Report: [facility] ,Zawfhp207194-027 mmol/LPotassium4.13.5-5.1 mmol/HGnhggvwb24735-057 mmol/LCarbon Stjadce53.721.0-32.0 mmol/LAnion Gap12.4Bledwns2534-126 mg/dLBlood Urea Nitrogen 19.07.0-18.0 mg/dLCreatinine0.540.55-1.02 mg/dLEstimated GFR ( Madeline>60 >=60 mL/min/1.73m 2Estimated GFR (Non- Aubrie>60>=60 mL/min/1.73m 2BUN Creatinine Ratio35.2Tiheilx0.98.5-10.1 mg/dLBilirubin Total0.40.2-1.0 mg/dL Aspartate Amino Lmvuajwkyrs7971-39 U/LAlanine Pbkbmjrrooyxeugc8817-25 U/L Alkaline Fpqsdanwvid0165-812 U/LTotal Protein6.86.4-8.2 g/dLAlbumin Level3.73.4- 5.0 g/dLGlobulin3.1Albumin Globulin Ratio1.2Performing Lab:see noteML - [facility] LBFREE T3 Reviewed date:03/19/2025 04:22:42 PM Interpretation: Performing Lab: Notes/Report: [facility] ,Free T31.892.18-3.98 pg/mLPerforming Lab:see noteML - [facility] LB T4 Reviewed date:03/19/2025 04:22:42 PM Interpretation: Performing Lab: Notes/Report: [facility] ,T4 Thyroxine5.604.80-13.90 ug/dLPerforming Lab:see noteML - [facility] LBTSH Reviewed date:03/19/2025 04:22:42 PM Interpretation: Performing Lab: Notes/Report: [facility] ,Thyroid Stimulating Hormone1.4110.358-3.740 uIU/mLPerforming Lab:see noteML - [facility] LB Reason For Referral No Information Medications Medication SIG (Take, Route, Frequency, Duration) Notes Start Date End Date Status valACYclovir HCl 1 GM 1 tablet Orally tid; Durat ion: 10 days 4ActiveVitamin CActiveGlucosamineActiveSemaglutide(0.25 or 0.5MG/DOS) 2 MG/3ML0.5 mg Subcutaneous xxhmue4304/04/2024ctiveSynthroid 75 MCGTAKE 1 TABLET ONCE DAILY INTHE MORNING ON AN EMPTY STOMACH Orally Once a day; Duration: 90 daysActiveLiothyronine Sodium 5 MCGTAKE FOUR TABLETS BY MOUTH EVERY DAY ON EMPTY STOMACH Orally Once a day; Duration: 90 daysActiveTriamcinolone Acetonide 0.1 %1 application Externally BID to affected areas; Duration: 30 days4Active CeleBREX 200 MG1 capsule with food Orally Once a day; Duration: 30 days 5ActiveMultivitamin WomenActiveoxyBUTYnin Chloride ER 10 MGTAKE ONE TABLET BY MOUTH EVERY DAY; Duration: 90Active Social History Tobacco Use: Social History Observation Description Date Details (start date - stop date) Former Smoker NA - 05/25/1996 Tobacco Use/Smoking Question Answer Notes Patient is a former smoker When did you stop smoking?05/25/1996How long has it been since you last smoked?> 10 yearsAlcohol Screen (Audit-C) Question Answer Notes Did you have a drink containing alcohol in the p ast year? Yes How often did you have 6 or more drinks on one occasion in the past year?Never (0 point)How many drinks did you have on a typical day when you were drinking in the past year?3 or 4 drinks (1 point)How often did you have a drink containing alcohol in the past year?Daily or almost daily (4 points)Ilmemi1Blisflbpxxzvhj PositiveAUDIT-C (Standard) Question Answer Notes Did you have a drink containing alcohol in the p ast year? Yes How often did you have six or more drinks on one occasion in the past year?Never (0 point)How many drinks did you have on a typical day when you were drinking in the past year?7 to 9 drinks (3 points)How often did you have a drink containing alcohol in the past year?Daily or almost daily (4 points)Yyjzmm0Rydhwbhnzjsvps Positive Problems Problem Type SNOMED Code ICD Code Onset Dates Problem Status W/U Status Risk Notes Problem Overweight (782106336) Overweight (E66.3) ActiveconfirmedProblemOsteoarthritis of knee (801520489)Unilateral primary osteoarthritis, left knee (M17.12)ActiveconfirmedProblemFatigue (53354392) Fatigue (R53.83)ActiveconfirmedProblemHypothyroidism (24748491)Hypothyroidism (E03.9)ActiveconfirmedProblemAnemia (717555090)Anemia (D64.9)Activeconfirmed ProblemOsteoarthritis of knee (554491459)Knee osteoarthritis (M17.9)Active confirmedProblemBladder incontinence (548137292)Bladder incontinence (R32)Active confirmedProblemLaboratory test result abnormal (882313233)Abnormal laboratory test (R89.9)ActiveconfirmedProblemCervical disc disorder (737484213)DDD (degenerative disc disease), cervical (M50.30)ActiveconfirmedProblemImpingement syndrome of shoulder region (900768542)Shoulder impingement (M75.40)Active confirmedProblemHerpetic nolan (03822503)Herpetic nolan (B00.89)Active confirmedProblemDisorder of sacrum (19775083)Low back derangement syndrome (M53.86)Activeconfirmed Vital Signs Temperature 97.7 degrees Fahrenheit 04/16/2024 Blood pressure qlbiftxkk14 mm Hg04/16/20254857Chegwb34 in04/16/2025lood pressure yutljmoy571 mm Hg04/16/20257901Mzpija375.8 lbs106/17/2024BMI23.99 kg/m204/16/2025 Encounters Encounter Location Date Provider Diagnosis [facility] [address] [place] [address] 04/16/2024 Meet Hoy Acute non-recurrent sinusitis, unspecified location J01.90 and Nasal congestion R09.81 [place] [address] [place] [address] 06/01/2024 Meet Hoy Acute non-recurrent sinusitis, unspecified location J01.90 and Nasal congestion R09.81 [facility] [address] [place] [address] 04/16/2025 Meet Hoy Knee osteoarthritis M17.9 and Unilateral primary osteoarthritis, left knee M17.12 [facility] [address] [place] [address] 04/30/2024 Meet Hoy [facility] [place] [address] [facility] [place] [address]/27/2025Doug [facility]oyOverweight E66.3[facility] [address] [facility] [place] [address]/Doug [place] [place] [address]/Doug Hoy [address] [place] [address] 12/17/2024Doug HoyOverweight E66.3B[address] [place] [address]/[facility] [address] [place] [address]/09/2024Doug [address] [place] [address]/09/2024Doug Hoy Acute non-recurrent sinusitis, unspecified location J01.[address] [place] [address]/Doug Hoy Hypothyroidism E03.9 ; Fatigue R53.83 ; Anemia D64.9 ; Screening for colon cancer Z12.11 and Wellness examination [address] [place] [address]/Doug HoyHypothyroidism E03.[address] [address] 03/25/2025Doug [address] [place] [address]/Doug Hoy Assessments Encounter Date Diagnosis (ICD Code) Assessment Notes Treatment Notes Treatment Clinical Notes Section Notes 06/01/2024 Acute non-recurrent sinusitis, unspecified location (ICD-10 - J01.90) Rest and drink more liquids, especially water. You may use a humidifier or vaporizer to help keep the drainage moist. Aeww-zqq-ypjbart Nasal Saline may help the stuffy and runny nose. Use Ibuprofen and or Tylenol as needed for fever, chills, body aches or pain. Children 5 years old should not be given ghli-npr-dfjtyxa cough and cold medications such as guaifenesin and dextromethorphan. If you're over age 5, you may try floo-crs-scwinfw cold medications such as guaifenesin and dextromethorphan, or multi-symptom cold reliever such as Dayquil to help reduce the symptoms. Antibiotics have been pre scribed. You should take these until completed and follow the directions. Antibiotics can sometimescause upset stomach, and in rare cases, serious allergic reactions or serious gastrointestinal problems. If you start having severe abdominal pain, severe vomiting, or bloody diarrhea, you should be r eevaluated by your physician or urgent care immediately. Follow up with your Primary Care Provider or return to clinic if symptoms do not improve within 3-5 days04/16/2025Unilateral primary osteoarthritis, left knee (ICD-10 - M17.12) 04/16/2025Knee osteoarthritis (ICD-10 - M17.9)07/19/2024Overweight (ICD-10 - E66.3)12/17/2024Overweight (ICD-10 - E66.3)5Acute non-recurrent sinusitis, unspecified location (ICD-10 - J01.90)03/18/2025Fatigue (ICD-10 - R53.83)03/18/2025Hypothyroidism (ICD-10 - E03.9)4Acute non-recurrent sinusitis, unspecified location (ICD-10 - J01.90)Rest and drink more liquids, especially water. You may use a humidifier or vaporizer to help keep the drainage moist. Bedx-yck-lioflpg Nasal Saline may help the stuffy and runny nose. Use Ibuprofen and or Tylenol as needed for fever, chills, body aches or pain. Children 5 years old should not be given fteh-ast-ilrvgox cough and cold medications such as guaifenesin and dextromethorphan. If you're over age 5, you may try rkat-tju-cderxlv cold medications such as guaifenesin and dextromethorphan, or multi-symptom cold reliever such as Dayquil to help reduce the symptoms. Antibiotics have been prescribed. You should take these until completed and follow the directions. Antibiotics can sometimescause upset stomach, and in rare cases, serious allergic reactions or serious gastrointestinal problems. If you start having severe abdominal pain, severe vomiting, or bloody diarrhea, you should be reevaluated by your physician or urgent care immediately. Follow up with your Primary Care Provider or return to clinic if symptoms do not improve within 3-5 days03/19/2025Hypothyroidism (ICD- 10 - E03.9)06/01/2024Nasal congestion (ICD-10 - R09.81)04/16/2024Nasal congestion (ICD-10 - R09.81)03/18/2025nemia (ICD-10 - D64.9)03/18/2025Screening for colon cancer (ICD-10 - Z12.11)03/18/2025Wellness examination (ICD-10 - Z00.00) Plan Of Treatment Pending Test Test Name Order Date CMP (COMPLETE METABOLIC PANEL) 4 HEMOGLOBIN A1C (GLYCO) 10/10/2023 IRON, TOTAL 10/10/2023 LIPID PANEL (CHOL/TRIG/HDL/LDL) 10/10/19 CBC WITH DIFF (EXP 02/2025) 10/10/2023 T3 FREE, T4 FREE and TSH 10/16/2023 T3 FREE, T4 FREE and TSH 12/04/2023 FECAL OCCULT BLOOD 03/18/2025 STOOL OCCULT BLOOD 10/10/2023 CBC AUTO DIFF 10/16/2023 FERRITIN 10/16/2023 IRON 10/16/2023 MRI SHOULDER RT WO CON 03/01/2023 US ABD 12/04/2023 XR KNEE LT 3V 04/16/2025 XR LSPINE 2_3 VIEWS 03/01/2023 THYROID PANEL (T4/TSH/FREE T3) 4 THYROID PANEL (T4/TSH/FREE T3) 5 THYROID PANEL (T4/TSH/FREE T3) 5 XR SHOULDER RT 2V or > 03/01/2023 Insurance Providers Payer Name Payer Address Payer Phone Subscriber Number Group Number Insured Name Patient Relationship to Insured Coverage Start Date Coverage End Date [employer]AR [address] [place] [phone] [id number] Spayd, Rebecca Self - patient is the insured Medical (General) History Medical History History ICD Code Hernia, inguinal, left K40.90 Overweight E66.3 Amnesia memory loss R41.3 Hypothyroidism E03.9 COVID-19 U07.1 Fatigue R53.83 DDD (degenerative disc disease), cervica l M50.30 Chest pain R07.9 Bladder incontinence R32 Surgical History Surgery Date(Month/Year) Bladder Suspension HYSTERECTOMY TOTAL
--- OUTSIDE RECORDS SUMMARY | 2025-04-16 15:44 | XMS_ITS | Clinical Summary ---
Author Organization [facility] Healthcare Address [address] [facility] [place] [address] Care Team Providers Care Administration Specialist Name Role Phone Unavailable Primary Care Provider [...] 5Active Active Problems No known active problems Encounters DateTypeDepartmentCare AgwjIjeklxxwoab03/03/2025 1:30 PM ESTOffice Visit [facility] [address] [facility] [address] [place] [address] Codie Beasley MD Seborrheic keratosis (Primary Dx); Actinic keratosis; Lentigines; Seborrheic keratosis, inflamed; Common wart; Pain03/27/2025amboo flowsheet [facility] [address] [place] [address] Codie Beasley MD 03/27/2025Travelfrom Last 3 Months Social History Tobacco UseTypesPacks/DayYears UsedDateSmoking Tobacco: Unknown Tobacco Cessation:Counseling Given: Not Answered CommentsUnknownSex and Gender InformationValueDate RecordedSex Assigned at BirthNot on fileLegal HfcZtgska06/15/2023 6:56 PM EDTGender IdentityNot on fileSexual OrientationNot on file Last Filed Vital Signs Vital SignReadingTime TakenCommentsBlood Ebugdphz598/80010/20/2024 12:13 PM EDT Ybaxf9687/28/2025 12:13 PM IBDYypouppajdl42.4 ??C (97.6 ??F)10/20/2024 12:13 PM EDTRespiratory Rate--Oxygen Aagkohxkst41%10/20/2024 12:13 PM EDTInhaled Oxygen Concentration--Weight--Height--Body Mass Index-- Plan of Treatment DateTypeDepartmentCare Team (Latest Contact Info)Civsqyxblxs65/10/2026 1:00 PM ESTOffice Visit [facility] [address] [facility] [address] [place] [address] Codie Beasley MD [address] [facility] [address] [place] [address] Health MaintenanceDue DateLast DoneCommentsCT Tvxnddqchphp04/14/1962Colonoscopy 2Colorectal Cancer Kjjhlnxoo17/14/1962FIT-DNA1961FIT1961 FOBT1961 6427Nzfdeyphuuspf22/14/1962ap Smear1982Cervical Cancer Fnshmoyui32/14/1992HPV/Rjpeys2111/06/19918454Gymvvwjgf09/14/2002Influenza Vaccine Lhugmoxlw26/15/2025, 03/03/2024, 03/11/2023, Additional history exists Pneumococcal Vaccine: Pediatrics (0 to 5 Years) and At-Risk Patients (6 to 64 Years)Aged OutNo longer eligible based on patient's age to complete this topic Procedures Procedure NamePriorityDate/TimeAssociated DiagnosisCommentsCRYOTHERAPY SKIN TEMEYEVimfanq30/03/2025 1:36 PM EST Common wart CRYOTHERAPY SKIN ZRFXIQQemkikc44/03/2025 1:35 PM EST Seborrheic keratosis, inflamed CRYOTHERAPY SKIN SGFVKJFjovqju88/03/2025 1:32 PM EST Actinic keratosis from Last 3 Months Results * Cryotherapy, skin lesion (03/27/2025 1:36 PM EST) Narrative Authorizing ProviderResult TypeResult StatusEmily A Petitti MDDERM PROCEDURE ORDERABLESFinal Result * Cryotherapy, skin lesion (03/27/2025 1:35 PM EST) Narrative Authorizing ProviderResult TypeResult StatusEmily A Petitti MDDERM PROCEDURE ORDERABLESFinal Result * Cryotherapy, skin lesion (03/27/2025 1:32 PM EST) Narrative Authorizing ProviderResult TypeResult StatusEmily A Petitti MDDERM PROCEDURE ORDERABLESFinal Result from Last [address] [place] [address]
--- NOTE | 2025-04-16 16:01 | XR_ITS ---
The [place] [id number] Patient Name: KAI ALEXANDER MRN: [id number] date: 1960 Sex: F Assigned Patient Location: [facility] Current Patient Location: [facility] Accession/Order Number: [id number] Exam Date: 04/16/2025 16:05 Report Date: 04/16/2025 23:38 At the request of: GORGE VANG MD Procedure: XR knee LT 3V 3 views right knee HISTORY: Chronic and medial left knee pain Adequate bony alignment without acute displaced fracture or joint effusion. Marginal spurring. Mild medial joint space narrowing. XR/XR knee LT 3V IMPRESSION: Moderate medial degeneration. Impression dictated by: Prasad Reilly M.D. 04/16/2025 11:38 PM Dictation Location: [place] [address] Electronically authenticated by: [id number] Y Date: 04/16/2025 23:38
== END 2025-04-16 15:40 | disposition home or self-care (01) ==
PROVIDERS: PCP Family Medicine; Visit Provider Family Medicine
DX: M17.12 Unilateral primary osteoarthritis, left knee (principal)
CPT/HCPCS: 73562